=== PATIENT | male | born 1945 | race Caucasian/White ===

== ENCOUNTER 2023-06-04 21:01 | Emergency (ER) | payer MEDICARE ==
[~2023-06-04] VITALS: Ht 177.8 cm; Wt 77.1 kg
[2023-06-04] MEDS ORDERED: ACETAMINOPHEN ES 500 MG TABLET PO ONE (21:30)
[2023-06-04] MEDS ORDERED: NITROGLYCERIN 0.4 MG/TAB BOTTLE SL ONE ×2 (21:30→21:31)
[2023-06-04] MEDS ORDERED: ASPIRIN 81 MG TAB.CHEW PO ONE (21:30)
[2023-06-04] MEDS ORDERED: ASPIRIN 81 MG TAB.CHEW ONE (21:31)
[2023-06-04] MEDS ORDERED: ACETAMINOPHEN ES 500 MG TABLET ONE (21:31)
[2023-06-04 21:41] LABS: BASOPHILS % (AUTO) 0.9 % (0.0-2.0); EOSINOPHILS # (AUTO) 0.1 K/uL (0.0-0.7); EOSINOPHILS % (AUTO) 1.2 % (0.0-7.0); HEMATOCRIT 34.1 % (36.7-47.1); HEMOGLOBIN 11.3 g/dL (12.5-16.3); LYMPHOCYTES # (AUTO) 1.6 K/uL (0.8-4.8); LYMPHOCYTES % (AUTO) 32.1 % (20.5-51.5); MEAN CORPUSCULAR HEMOGLOBIN 31.6 uug (23.8-33.4); MEAN CORPUSCULAR HGB CONC 33 g/dL (32.5-36.3); MEAN CORPUSCULAR VOLUME 95.3 fL (73.0-96.2); MONOCYTES # (AUTO) 0.5 K/uL (0.1-1.30); MONOCYTES % (AUTO) 10.3 % (0.0-11.0); NEUTROPHILS # (AUTO) 2.8 K/uL (1.8-8.9); NEUTROPHILS % (AUTO) 55.5 % (38.5-71.5); PLATELET COUNT (AUTO) 209 K/uL (152-348); RED BLOOD CELL COUNT(AUTO) 3.58 MIL/uL (4.06-5.63); WHITE BLOOD COUNT (AUTO) 5.1 K/uL (3.6-10.2)
[2023-06-04 21:46] LABS: DIFFERENTIAL COMMENT 1
[2023-06-04 22:09] LABS: CALCIUM 8.9 mg/dL (8.5-10.1); CARBON DIOXIDE 25 mmol/L (21-32); CHLORIDE 108 mmol/L (98-107); CREATININE 1.3 mg/dL (0.6-1.3); GLUCOSE 122 mg/dL (74-106); POTASSIUM 4.5 mmol/L (3.5-5.1); SODIUM SERUM 142 mmol/L (136-145); UREA NITROGEN, BLOOD 25 mg/dL (7-18)
[2023-06-04 22:11] VITALS: BP 102/56; TEMP 98.5; O2SAT 98
[2023-06-04 22:22] LABS: ALANINE AMINOTRANSFERASE 27 U/L (16-63); ALBUMIN 3.2 g/dL (3.4-5.0); ALKALINE PHOSPHATASE 66 U/L (50-136); ASPARTATE AMINOTRANSFERASE 17 U/L (15-37); BILIRUBIN,DIRECT 0.1 mg/dL (0.0-0.2); BILIRUBIN,TOTAL 0.3 mg/dL (0.2-1.0); NT-PRO BNP 1150 pg/mL (0-125)
== END 2023-06-04 22:51 | disposition left against medical advice (07) ==
LOC: ER 21:01
DX: R07.89 Other chest pain (principal); D64.9 Anemia, unspecified; E88.09 Other disorders of plasma-protein metabolism, not elsewhere classified; Z76.5 Malingerer [conscious simulation]; F10.129 Alcohol abuse with intoxication, unspecified; E78.5 Hyperlipidemia, unspecified; I50.9 Heart failure, unspecified; J45.909 Unspecified asthma, uncomplicated; F31.9 Bipolar disorder, unspecified; Z60.2 Problems related to living alone
CPT/HCPCS: 36415; 84484; 85025; 85730; 93005; A4606; A4663; A9150; G0480

== ENCOUNTER 2024-09-06 19:51 | Inpatient (IN) | payer MEDICARE, OTHER ==
[~2024-09-06] VITALS: Ht 182.9 cm; Wt 76.9 kg
[2024-09-06 20:22] LABS: BASOPHILS # (AUTO) 0.1 K/UL (0.0-0.2); BASOPHILS % (AUTO) 1.2 % (0.0-2.0); DIFFERENTIAL COMMENT 0; EOSINOPHILS # (AUTO) 0.3 K/uL (0.0-0.7); EOSINOPHILS % (AUTO) 4.3 % (0.0-7.0); HEMOGLOBIN 11.6 g/dL (12.5-16.3); LYMPHOCYTES # (AUTO) 2.2 K/uL (0.8-4.8); LYMPHOCYTES % (AUTO) 29.5 % (20.5-51.5); MEAN CORPUSCULAR HEMOGLOBIN 31.5 uug (23.8-33.4); MEAN CORPUSCULAR HGB CONC 33 g/dL (32.5-36.3); MEAN CORPUSCULAR VOLUME 95.2 fL (73.0-96.2); MONOCYTES # (AUTO) 0.8 K/uL (0.1-1.30); MONOCYTES % (AUTO) 10.5 % (0.0-11.0); NEUTROPHILS % (AUTO) 54.5 % (38.5-71.5); PLATELET COUNT (AUTO) 199 K/uL (152-348); RED BLOOD CELL COUNT(AUTO) 3.68 MIL/uL (4.06-5.63); RED CELL DISTRIBUTION WIDTH 16.4 % (12.1-16.2); WHITE BLOOD COUNT (AUTO) 7.4 K/uL (3.6-10.2)
[2024-09-06 20:30] LABS: CALCIUM 9.3 mg/dL (8.5-10.1); CARBON DIOXIDE 20 mmol/L (21-32); CHLORIDE 105 mmol/L (98-107); CREATININE 1.1 mg/dL (0.6-1.3); GLUCOSE 89 mg/dL (74-106); POTASSIUM 4.4 mmol/L (3.5-5.1); SODIUM SERUM 137 mmol/L (136-145); UREA NITROGEN, BLOOD 26 mg/dL (7-18)
[2024-09-06 20:43] LABS: ALANINE AMINOTRANSFERASE 23 U/L (16-63); ALBUMIN 3.4 g/dL (3.4-5.0); ALKALINE PHOSPHATASE 83 U/L (50-136); ASPARTATE AMINOTRANSFERASE 24 U/L (15-37); BILIRUBIN,TOTAL 0.2 mg/dL (0.2-1.0); NT-PRO BNP 340 pg/mL (0-125); TOTAL PROTEIN, SERUM 6.8 g/dL (6.4-8.2)
[2024-09-06] MEDS ORDERED: IV NORMAL SALINE 250 ML IV ONE (21:17)
[2024-09-06] MEDS ORDERED: IOHEXOL 300MG/ML 100 ML INFUS..BTL ONE (21:17)
[2024-09-06] MEDS ORDERED: SWABABLE VALVE TRANSFER SET EA MC ONE (21:17)
[2024-09-06 22:57] LABS: *BILIRUBIN,URIN NEGATIVE (NEGATIVE); *BLOOD, URINE NEGATIVE (NEGATIVE); *CLARITY,URINE CLEAR (CLEAR); *COLOR,URINE YELLOW (YELLOW); *KETONES,URINE NEGATIVE (NEGATIVE); *PROTEIN,URINE NEGATIVE (NEGATIVE); *UROBILINOGEN,URINE 0.2 E.U./dl (NORMAL); LEUKOCYTE ESTERASE ,URINE NEGATIVE (NEGATIVE); NITRITE, URINE NEGATIVE (NEGATIVE); PH,URINE 5.5 (5.0-8.0); UGLUCOSE NEGATIVE (NEGATIVE)
[2024-09-06 23:21] LABS: *AMPHETAMINE, URINE NEGATIVE (NEGATIVE); *BARBITURATE, URINE NEGATIVE (NEGATIVE); *BENZODIAZEPINE, URINE POSITIVE (NEGATIVE); *CANNABINOID, URINE NEGATIVE (NEGATIVE); *COCCAINE, URINE NEGATIVE (NEGATIVE); *OPIATE, URINE NEGATIVE (NEGATIVE); *PHENCYCLIDINE SCREEN,URINE NEGATIVE (NEGATIVE); FENTANYL, URINE NEGATIVE (NEGATIVE)
[2024-09-06] MEDS ORDERED: CARV3.12 PO (23:35)
[2024-09-07] MEDS ORDERED: ACETAMINOPHEN 325 MG TABLET PO PRN (00:45)
[2024-09-07] MEDS ORDERED: ONDANSETRON 4 MG/2 ML VIAL IV PRN (00:45)
[2024-09-07] MEDS ORDERED: MAGNESIUM HYDROXIDE 30 ML LIQUID UDC PO PRN (00:45)
[2024-09-07] MEDS ORDERED: ERGO500040 PO (01:15)
[2024-09-07] MEDS ORDERED: AMLO-212 PO (01:15)
[2024-09-07] MEDS ORDERED: FOLI1TAB94 PO (01:15)
[2024-09-07] MEDS ORDERED: OMEP40CA21 PO (01:15)
[2024-09-07] MEDS ORDERED: ATOR80TA PO (01:15)
[2024-09-07] MEDS ORDERED: GABA100C PO (01:15)
[2024-09-07] MEDS ORDERED: LAMO100T17 PO (01:15)
[2024-09-07] MEDS ORDERED: BUPR-53 PO (01:15)
[2024-09-07] MEDS ORDERED: DULO60CA45 PO (01:15)
[2024-09-07] MEDS ORDERED: LOSA50TA39 PO (01:15)
[2024-09-07 02:00] VITALS: BP 154/68; TEMP 97.8; O2SAT 99
[2024-09-07] MEDS: IV NS 1000 ML 1,000 ML IV SCH (03:10)
[2024-09-07 05:01] VITALS: BP 142/72; TEMP 97.4; O2SAT 98
[2024-09-07 06:18] VITALS: BP 142/72; TEMP 97.4; O2SAT 98
[2024-09-07 06:43] LABS: BASOPHILS % (AUTO) 0.7 % (0.0-2.0); EOSINOPHILS # (AUTO) 0.3 K/uL (0.0-0.7); EOSINOPHILS % (AUTO) 5.2 % (0.0-7.0); HEMATOCRIT 33.5 % (36.7-47.1); HEMOGLOBIN 11.5 g/dL (12.5-16.3); LYMPHOCYTES # (AUTO) 1.6 K/uL (0.8-4.8); LYMPHOCYTES % (AUTO) 31.1 % (20.5-51.5); MEAN CORPUSCULAR HEMOGLOBIN 32.1 uug (23.8-33.4); MEAN CORPUSCULAR HGB CONC 34 g/dL (32.5-36.3); MEAN CORPUSCULAR VOLUME 93.4 fL (73.0-96.2); MONOCYTES # (AUTO) 0.7 K/uL (0.1-1.30); MONOCYTES % (AUTO) 13.6 % (0.0-11.0); NEUTROPHILS # (AUTO) 2.6 K/uL (1.8-8.9); NEUTROPHILS % (AUTO) 49.4 % (38.5-71.5); PLATELET COUNT (AUTO) 227 K/uL (152-348); RED BLOOD CELL COUNT(AUTO) 3.58 MIL/uL (4.06-5.63); RED CELL DISTRIBUTION WIDTH 15.8 % (12.1-16.2); WHITE BLOOD COUNT (AUTO) 5.2 K/uL (3.6-10.2)
[2024-09-07 07:00] LABS: CALCIUM 9.7 mg/dL (8.5-10.1); CARBON DIOXIDE 23 mmol/L (21-32); CHLORIDE 108 mmol/L (98-107); CREATININE 0.9 mg/dL (0.6-1.3); GLUCOSE 80 mg/dL (74-106); MAGNESIUM 1.6 mg/dL (1.8-2.4); PHOSPHOROUS 3.5 mg/dL (2.5-4.9); POTASSIUM 3.9 mmol/L (3.5-5.1); SODIUM SERUM 141 mmol/L (136-145); UREA NITROGEN, BLOOD 21 mg/dL (7-18)
[2024-09-07 07:15] LABS: DIFFERENTIAL COMMENT 1
[2024-09-07] MEDS ORDERED: Medication Not On Formulary EA (Omeprazole 40 MG) PO SCH (09:00)
[2024-09-07] MEDS: MAGNESIUM OXIDE 400 MG TABLET PO ONE (10:00)
[2024-09-07] MEDS: PANTOPRAZOLE SODIUM 40 MG VIAL IV SCH (10:00)
[2024-09-07] MEDS: DULOXETINE 60 MG CAPSULE.DR PO SCH (10:05)
[2024-09-07] MEDS: CARVEDILOL 12.5 MG TABLET PO SCH (10:05)
[2024-09-07] MEDS: LAMOTRIGINE 100 MG TABLET PO SCH (10:05)
[2024-09-07] MEDS: FOLIC ACID 1 MG TABLET PO SCH (10:05)
[2024-09-07] MEDS: LOSARTAN POTASSIUM 50 MG TABLET PO SCH (10:05)
[2024-09-07] MEDS: GABAPENTIN 100 MG CAPSULE PO SCH (10:05)
[2024-09-07 10:06] VITALS: BP 132/69
[2024-09-07] MEDS: AMLODIPINE 5 MG TABLET PO SCH (10:06)
[2024-09-07] MEDS: buPROPion XL 150 MG TAB.SR.24H PO SCH (10:07)
[2024-09-07] MEDS ORDERED: ATORVASTATIN 40 MG TABLET PO SCH (21:00)
== END 2024-09-07 11:30 | disposition home health service (06) | DRG 641 ==
LOC: ER 20:14 → MEDSURG3 09-07 01:24
PROVIDERS: ATTEND Nurse Practitioner Family
DX: E86.0 Dehydration (principal); F10.129 Alcohol abuse with intoxication, unspecified; Y90.3 Blood alcohol level of 60-79 mg/100 ml; E78.5 Hyperlipidemia, unspecified; I25.10 Atherosclerotic heart disease of native coronary artery without angina pectoris; Z95.1 Presence of aortocoronary bypass graft; Z79.899 Other long term (current) drug therapy; Z86.73 Personal history of transient ischemic attack (TIA), and cerebral infarction without residual deficits; G89.29 Other chronic pain; Z85.46 Personal history of malignant neoplasm of prostate; I11.0 Hypertensive heart disease with heart failure; I50.9 Heart failure, unspecified; Z90.49 Acquired absence of other specified parts of digestive tract; R07.89 Other chest pain; J45.909 Unspecified asthma, uncomplicated; Z91.81 History of falling
CPT/HCPCS: 36415; 70450; 71045; 71260; 83735; 84100; 84484; 85025; A4663; A6209; G0378; G0480; J2470; J7040; Q9967